=== PATIENT | female | born 1965 | race Hispanic/Latino ===

== ENCOUNTER 2017-11-30 00:36 | Inpatient (IN) | payer MEDICARE ==
[~2017-11-30] VITALS: Ht 149.9 cm; Wt 54.3 kg
[2017-11-30] MEDS ORDERED: SODIUM CHLORIDE 0.9% 1000ML 1,000 ML IV ONE ×2 (00:52→06:38)
[2017-11-30] MEDS ORDERED: INSULIN HUMULIN R 100 UNIT/ML 3ML ONE (00:53)
[2017-11-30 01:10] LABS: BASOPHILS % (AUTO) 0.4 % (0.0-5.0); EOSINOPHILS % (AUTO) 0.1 % (0.0-8.0); HEMATOCRIT 39.1 % (36-48); LYMPHOCYTES % (AUTO) 3.3 % (21.0-51.0); MEAN CORPUSCULAR HEMOGLOBIN 31.7 pg (27.0-33.0); MEAN CORPUSCULAR HGB CONC 33.6 g/dL (32.0-36.0); MEAN CORPUSCULAR VOLUME 94.4 fL (79-99); MONOCYTES % (AUTO) 7.3 % (3.0-13.0); NEUTROPHILS % (AUTO) 88.9 % (40.0-77.0); PLATELET COUNT (AUTO) 260 K/uL (130-400); RED BLOOD CELL COUNT(AUTO) 4.15 MIL/uL (4.00-5.50); RED CELL DISTRIBUTION WIDTH 13.4 % (11.0-15.5); WHITE BLOOD COUNT (AUTO) 19.6 K/uL (4.8-10.8)
[2017-11-30] MEDS ORDERED: CEFTRIAXONE SODIUM 1 GM ONE (01:31)
[2017-11-30 01:33] LABS: APPEARANCE,URINE Cloudy (CLEAR); BILIRUBIN,URINE Negative (NEGATIVE); COLOR,URINE Yellow (YELLOW); GLUCOSE, URINE (UA) >=1000 mg/dL (NEGATIVE); KETONES,URINE Trace mg/dL (NEGATIVE); LEUKOCYTE ESTERASE ,URINE Trace (NEGATIVE); NITRATE,URINE Negative (NEGATIVE); OCCULT BLOOD,URINE Small (NEGATIVE); PROTEIN,URINE POS 2+ (NEGATIVE); UROBILINOGEN,URINE 0.2 mg/dL (0.2-1.0)
[2017-11-30 01:54] LABS: RBC,URINE 0-1 /HPF (0-1)
[2017-11-30 01:55] LABS: BACTERIA,URINE Rare /HPF (None Seen)
[2017-11-30 02:06] LABS: CREATININE 1.5 mg/dL (0.5-1.5); POTASSIUM 3.5 mmol/L (3.5-5.1)
[2017-11-30 02:11] LABS: ALBUMIN 2.8 g/dL (3.5-5.0); BILIRUBIN,TOTAL 0.4 mg/dL (0.2-1.0); TOTAL PROTEIN, SERUM 6.4 g/dL (6.0-8.3)
[2017-11-30 04:55] VITALS: BP 119/54
[2017-11-30 08:00] VITALS: BP 117/66
[2017-11-30] MEDS: ENOXAPARIN SODIUM 30 MG/0.3 ML SQ SCH (10:54)
[2017-11-30 11:58] VITALS: BP 154/76
[2017-11-30] MEDS ORDERED: GLIM1TAB2 PO (12:28)
[2017-11-30] MEDS ORDERED: ASPI-1197 PO (12:28)
[2017-11-30] MEDS ORDERED: ATOR10 PO (12:28)
[2017-11-30] MEDS ORDERED: MIRA50TA PO (12:28)
[2017-11-30] MEDS ORDERED: LISI-613 PO (12:28)
[2017-11-30] MEDS ORDERED: FAMO20TA8 PO (12:28)
[2017-11-30] MEDS ORDERED: INSNOV SQ ×2 (12:28)
[2017-11-30] MEDS ORDERED: METF10004 PO (12:28)
[2017-11-30] MEDS ORDERED: SITA50TA PO (12:28)
[2017-11-30] MEDS ORDERED: FERS325 PO (12:28)
[2017-11-30] MEDS ORDERED: INSU100V12 SQ (12:28)
[2017-11-30] MEDS ORDERED: LIDOCAINE HCL-MPF 1% 2ML VIAL IVP PRN (13:00)
[2017-11-30] MEDS ORDERED: POTASSIUM CHLORIDE 10% ELIXIR 20 MEQ/15 ML UDCUP PO PRN (13:00)
[2017-11-30] MEDS ORDERED: POTASSIUM CHLORIDE 20MEQ/100ML 100 ML IV PRN (13:00)
[2017-11-30] MEDS: SODIUM CHLORIDE 0.9% 1000ML 1,000 ML IV SCH (16:30)
[2017-11-30] MEDS ORDERED: LACTULOSE 20 GM/30 ML UDCUP PO PRN (16:30)
[2017-11-30] MEDS ORDERED: ONDANSETRON HCL 4 MG/2 ML VIAL IVP PRN (16:30)
[2017-11-30] MEDS ORDERED: ACETAMINOPHEN 325 MG TAB PO PRN (16:30)
[2017-11-30] MEDS ORDERED: CEFTRIAXONE 1GM/D5W 50ML 50 ML IV SCH (16:30)
[2017-11-30] MEDS ORDERED: HYDRALAZINE HCL 20 MG/ML VIAL IV PRN (16:30)
[2017-11-30 16:37] VITALS: BP 149/74
[2017-11-30] MEDS: CEFTRIAXONE SODIUM 1 GM IVP SCH (18:47)
[2017-11-30] MEDS: INSULIN HUMULIN R 100 UNIT/ML 3ML SQ SCH ×2 (18:57→22:33)
[2017-11-30 20:45] VITALS: BP 152/85
[2017-12-01 00:30] VITALS: BP 142/84
[2017-12-01 04:28] VITALS: BP 148/80
[2017-12-01] MEDS: SODIUM CHLORIDE 0.9% 1000ML 1,000 ML IV SCH ×3 (05:03→21:21)
[2017-12-01 05:30] LABS: HEMATOCRIT 39.9 % (36-48); MEAN CORPUSCULAR HEMOGLOBIN 31.3 pg (27.0-33.0); MEAN CORPUSCULAR HGB CONC 34.1 g/dL (32.0-36.0); MEAN CORPUSCULAR VOLUME 91.8 fL (79-99); PLATELET COUNT (AUTO) 224 K/uL (130-400); RED BLOOD CELL COUNT(AUTO) 4.34 MIL/uL (4.00-5.50); RED CELL DISTRIBUTION WIDTH 12.9 % (11.0-15.5); WHITE BLOOD COUNT (AUTO) 11.1 K/uL (4.8-10.8)
[2017-12-01 05:45] LABS: CREATININE 0.9 mg/dL (0.5-1.5); POTASSIUM 3.1 mmol/L (3.5-5.1)
[2017-12-01] MEDS: INSULIN HUMULIN R 100 UNIT/ML 3ML SQ SCH ×4 (06:51→21:27)
[2017-12-01 08:30] VITALS: BP 131/68
[2017-12-01] MEDS: POTASSIUM CHLORIDE 20 MEQ ERTAB PO PRN ×3 (09:01→13:06)
[2017-12-01] MEDS: ENOXAPARIN SODIUM 30 MG/0.3 ML SQ SCH (09:01)
[2017-12-01] MEDS ORDERED: FAMOTIDINE 20MG TAB 20 MG TAB PO PRN (10:45)
[2017-12-01 12:00] VITALS: BP 156/90
[2017-12-01 16:00] VITALS: BP 144/66
[2017-12-01] MEDS: CEFTRIAXONE SODIUM 1 GM IVP SCH (17:13)
[2017-12-01] MEDS: METFORMIN HCL 500 MG TABLET PO SCH (17:13)
[2017-12-01 19:00] VITALS: BP 155/87
[2017-12-01] MEDS: GLIMEPIRIDE 2 MG TABLET PO SCH (21:00)
[2017-12-01] MEDS: ATORVASTATIN CALCIUM 10 MG TABLET PO SCH (21:19)
[2017-12-02] VITALS: BP 104/64
[2017-12-02 04:00] VITALS: BP 155/83
[2017-12-02] MEDS: INSULIN HUMULIN R 100 UNIT/ML 3ML SQ SCH ×4 (07:30→21:41)
[2017-12-02 08:00] VITALS: BP 153/85
[2017-12-02] MEDS: FERROUS SULFATE 325 MG TABLET.DR PO SCH (08:50)
[2017-12-02] MEDS: GLIMEPIRIDE 2 MG TABLET PO SCH ×2 (08:51→16:40)
[2017-12-02] MEDS: ASPIRIN 81MG TAB.CHEW PO SCH (08:52)
[2017-12-02] MEDS: LINAGLIPTIN 5 MG TABLET PO SCH (08:52)
[2017-12-02] MEDS: LISINOPRIL 20 MG TABLET PO SCH (08:52)
[2017-12-02] MEDS: METFORMIN HCL 500 MG TABLET PO SCH ×2 (08:52→16:39)
[2017-12-02] MEDS: ENOXAPARIN SODIUM 30 MG/0.3 ML SQ SCH (08:54)
[2017-12-02] MEDS: ***HM**(Mirabegron (Myrbetriq) 50 MG) PO SCH (08:55)
[2017-12-02] MEDS: SODIUM CHLORIDE 0.9% 1000ML 1,000 ML IV SCH ×2 (08:59→21:34)
[2017-12-02] MEDS: POTASSIUM CHLORIDE 20 MEQ ERTAB PO PRN ×2 (10:18→12:25)
[2017-12-02 12:00] VITALS: BP 155/88
[2017-12-02 16:00] VITALS: BP 140/74
[2017-12-02] MEDS: CEFTRIAXONE SODIUM 1 GM IVP SCH (16:40)
[2017-12-02 19:00] VITALS: BP 143/83
[2017-12-02] MEDS: ATORVASTATIN CALCIUM 10 MG TABLET PO SCH (21:32)
[2017-12-03] VITALS: BP 157/81
[2017-12-03 04:00] VITALS: BP 130/76
[2017-12-03] MEDS: SODIUM CHLORIDE 0.9% 1000ML 1,000 ML IV SCH ×2 (04:37→21:10)
[2017-12-03] MEDS: INSULIN HUMULIN R 100 UNIT/ML 3ML SQ SCH ×4 (06:01→20:29)
[2017-12-03 06:42] LABS: EOSINOPHILS % (AUTO) 1.1 % (0.0-8.0); HEMATOCRIT 34.9 % (36-48); LYMPHOCYTES % (AUTO) 23.7 % (21.0-51.0); MEAN CORPUSCULAR HGB CONC 35.2 g/dL (32.0-36.0); MEAN CORPUSCULAR VOLUME 90.9 fL (79-99); MONOCYTES % (AUTO) 8.7 % (3.0-13.0); NEUTROPHILS % (AUTO) 65.5 % (40.0-77.0); PLATELET COUNT (AUTO) 254 K/uL (130-400); RED BLOOD CELL COUNT(AUTO) 3.84 MIL/uL (4.00-5.50); RED CELL DISTRIBUTION WIDTH 12.7 % (11.0-15.5); WHITE BLOOD COUNT (AUTO) 6.3 K/uL (4.8-10.8)
[2017-12-03 06:46] LABS: CREATININE 0.9 mg/dL (0.5-1.5); POTASSIUM 3.4 mmol/L (3.5-5.1)
[2017-12-03 08:00] VITALS: BP 134/73
[2017-12-03] MEDS: FERROUS SULFATE 325 MG TABLET.DR PO SCH (08:18)
[2017-12-03] MEDS: LINAGLIPTIN 5 MG TABLET PO SCH (08:18)
[2017-12-03] MEDS: LISINOPRIL 20 MG TABLET PO SCH (08:18)
[2017-12-03] MEDS: METFORMIN HCL 500 MG TABLET PO SCH ×2 (08:19→17:04)
[2017-12-03] MEDS: ASPIRIN 81MG TAB.CHEW PO SCH (08:20)
[2017-12-03] MEDS: GLIMEPIRIDE 2 MG TABLET PO SCH ×2 (08:20→17:04)
[2017-12-03] MEDS: ENOXAPARIN SODIUM 30 MG/0.3 ML SQ SCH (08:21)
[2017-12-03] MEDS: POTASSIUM CHLORIDE 20 MEQ ERTAB PO PRN ×3 (08:24→13:03)
[2017-12-03] MEDS: ***HM**(Mirabegron (Myrbetriq) 50 MG) PO SCH (09:00)
[2017-12-03 11:46] VITALS: BP 142/79
[2017-12-03 16:00] VITALS: BP 156/73
[2017-12-03] MEDS: CEFTRIAXONE SODIUM 1 GM IVP SCH (17:03)
[2017-12-03 20:00] VITALS: BP 155/92
[2017-12-03] MEDS: ATORVASTATIN CALCIUM 10 MG TABLET PO SCH (21:10)
[2017-12-04] VITALS: BP 152/89
[2017-12-04] MEDS: SODIUM CHLORIDE 0.9% 1000ML 1,000 ML IV SCH ×2 (00:21→05:49)
[2017-12-04 04:00] VITALS: BP 142/79
[2017-12-04] MEDS: INSULIN HUMULIN R 100 UNIT/ML 3ML SQ SCH (06:02)
[2017-12-04 07:00] VITALS: BP 129/65
[2017-12-04] MEDS: METFORMIN HCL 500 MG TABLET PO SCH (07:46)
[2017-12-04] MEDS: LISINOPRIL 20 MG TABLET PO SCH (07:46)
[2017-12-04] MEDS: LINAGLIPTIN 5 MG TABLET PO SCH (07:46)
[2017-12-04] MEDS: FERROUS SULFATE 325 MG TABLET.DR PO SCH (07:46)
[2017-12-04] MEDS: ASPIRIN 81MG TAB.CHEW PO SCH (07:46)
[2017-12-04] MEDS: GLIMEPIRIDE 2 MG TABLET PO SCH (07:47)
[2017-12-04] MEDS: ***HM**(Mirabegron (Myrbetriq) 50 MG) PO SCH (07:49)
[2017-12-04] MEDS: ENOXAPARIN SODIUM 30 MG/0.3 ML SQ SCH (07:49)
[2017-12-04 11:00] VITALS: BP 128/73
[2017-12-04] MEDS ORDERED: CEPH500B PO (11:53)
[2017-12-04 16:00] VITALS: BP 157/79
== END 2017-12-04 17:20 | DRG 872 ==
LOC: EDH 00:37 → EDHIP 04:11 → 3AH 04:31
PROVIDERS: ADMIT Family Medicine; ATTEND Family Medicine
DX: A41.9 Sepsis, unspecified organism (principal); E87.1 Hypo-osmolality and hyponatremia; N39.0 Urinary tract infection, site not specified; R65.20 Severe sepsis without septic shock; F79 Unspecified intellectual disabilities; R62.50 Unspecified lack of expected normal physiological development in childhood; R29.6 Repeated falls; W18.39XA Other fall on same level, initial encounter; E11.65 Type 2 diabetes mellitus with hyperglycemia; E78.5 Hyperlipidemia, unspecified; I10 Essential (primary) hypertension; Z86.73 Personal history of transient ischemic attack (TIA), and cerebral infarction without residual deficits; Z87.440 Personal history of urinary (tract) infections; Z91.81 History of falling; Y93.89 Activity, other specified; Y99.8 Other external cause status; Y92.89 Other specified places as the place of occurrence of the external cause
CPT/HCPCS: 36415; 70450; 71045; 80048; 80053; 81001; 82948; 83605; 84132; 84484; 85025; 85027; 87040; 87088; 92522; 93005; 93880; 97039; A4218; J0696; J1650; J1815; J7030

== ENCOUNTER 2018-05-10 19:09 | Emergency (ER) | payer MEDICARE ==
[~2018-05-10 19:09] MED LIST: ASPI-1197 PO; ATOR10 PO; CEPH500B PO; FAMO20TA8 PO; FERS325 PO; GLIM1TAB2 PO; INSNOV SQ; INSU100V12 SQ; LISI-613 PO; METF-446 PO; MIRA50TA PO; SITA50TA PO
== END 2018-05-10 20:59 | disposition home or self-care (01) ==
LOC: EDH 19:09
DX: S70.01XA Contusion of right hip, initial encounter (principal); W18.39XA Other fall on same level, initial encounter; Y93.89 Activity, other specified; Y92.098 Other place in other non-institutional residence as the place of occurrence of the external cause; Y99.8 Other external cause status
CPT/HCPCS: 73502

== ENCOUNTER 2018-09-18 19:14 | Emergency (ER) | payer MEDICARE ==
[2018-09-18] MEDS ORDERED: SODIUM CHLORIDE 0.9% 1000ML 1,000 ML IV ONE (20:01)
[2018-09-18 20:07] LABS: BASOPHILS % (AUTO) 0.6 % (0.0-5.0); HEMATOCRIT 41.1 % (36-48); LYMPHOCYTES % (AUTO) 33.4 % (21.0-51.0); MEAN CORPUSCULAR HEMOGLOBIN 31.3 pg (27.0-33.0); MEAN CORPUSCULAR VOLUME 92.1 fL (79-99); MONOCYTES % (AUTO) 5.1 % (3.0-13.0); NEUTROPHILS % (AUTO) 58.9 % (40.0-77.0); NUCLEATED RED BLOOD CELLS 0.1 % (0.0-0.19); PLATELET COUNT (AUTO) 226 K/uL (130-400); RED BLOOD CELL COUNT(AUTO) 4.47 MIL/uL (4.00-5.50); WHITE BLOOD COUNT (AUTO) 8.9 K/uL (4.8-10.8)
[2018-09-18 20:13] LABS: CREATININE 0.8 mg/dL (0.5-1.5); POTASSIUM 4.2 mmol/L (3.5-5.1)
[2018-09-18 20:20] LABS: ALBUMIN 3.7 g/dL (3.5-5.0); BILIRUBIN,TOTAL 0.2 mg/dL (0.2-1.0)
== END 2018-09-18 21:31 | disposition home or self-care (01) ==
LOC: EDH 19:14
DX: R19.7 Diarrhea, unspecified (principal); I10 Essential (primary) hypertension; Z86.73 Personal history of transient ischemic attack (TIA), and cerebral infarction without residual deficits; Z79.899 Other long term (current) drug therapy
CPT/HCPCS: 36415; 80053; 85025; 96360; 99283; J7030